=== PATIENT | female | born 1965 | race Two or more races ===

== ENCOUNTER → 2024-01-22 | Outpatient (CLI) | payer MEDICAID, SELFPAY ==
--- NOTE | 2024-01-22 | XR_ITS ---
Examination: Knee, right , 3 views Technique: Knee AP, lateral, oblique 3 views Date and time of exam: January 22, 2024 1249 hours INDICATIONS: Knee pain years FINDINGS: Total right knee arthroplasty. Satisfactory alignment. No fracture. No loosening of the prosthetic components IMPRESSION: Total right knee arthroplasty with satisfactory alignment
== END | disposition home or self-care (01) ==
LOC: CDIM 11:40
PROVIDERS: PCP Nurse Practitioner Family; Referring Provider Nurse Practitioner Family; Visit Provider Nurse Practitioner Family
DX: M25.561 Pain in right knee (principal); Z96.651 Presence of right artificial knee joint
CPT/HCPCS: 73562

== ENCOUNTER → 2024-01-22 | Outpatient (BNVA) | payer MEDICAID, SELFPAY | END | disposition home or self-care (01) | PROVIDERS: PCP Nurse Practitioner Family; Referring Provider Nurse Practitioner Family; Visit Provider Nurse Practitioner Family | DX: Z71.2 Person consulting for explanation of examination or test findings (principal); E78.5 Hyperlipidemia, unspecified; R73.03 Prediabetes; M25.561 Pain in right knee; M54.50 Low back pain, unspecified; M54.6 Pain in thoracic spine; G89.29 Other chronic pain; M25.511 Pain in right shoulder; M54.16 Radiculopathy, lumbar region; M19.072 Primary osteoarthritis, left ankle and foot; M41.86 Other forms of scoliosis, lumbar region | CPT/HCPCS: 99214 ==

== ENCOUNTER → 2024-01-29 | Outpatient (BNVA) | payer MEDICAID, SELFPAY | END | disposition home or self-care (01) | PROVIDERS: PCP Nurse Practitioner Primary Care; Referring Provider Nurse Practitioner Primary Care; Visit Provider Nurse Practitioner Primary Care | DX: M25.561 Pain in right knee (principal); Z96.651 Presence of right artificial knee joint; G89.29 Other chronic pain | CPT/HCPCS: 99212; G0463 ==

== ENCOUNTER 2024-03-05 08:20 | Day surgery (SDC) | payer MEDICAID, SELFPAY ==
--- NOTE | 2024-03-04 07:00 | EKG_ITS ---
[facility] Test Date: 2024-03-04 Pat Name: KASEY MILLAN Department: Room: - Gender: Female Nurse Leader: RT STUDENT : 1965 Requested By: Maximilian Hernandez Order Number: [id number] Reading MD: Maximilian Hernandez Measurements Intervals Lenora Rate: 59 P: 1 DE: 183 QRS: 26 QRSD: 78 T: 32 QT: 420 QTc: 418 Interpretive Statements SINUS BRADYCARDIA Compared to ECG 03/31/2021 06:15:18 Sinus rhythm no longer present /[id number]
[2024-03-04 09:07] VITALS: BMI 32.7
[2024-03-04 09:46] LABS: Basophils # (Auto) 0.1 Thou/mm3 (0.0-0.2); Basophils % (Auto) 1 % (0-2.5); Eosinophils # (Auto) 0.4 Thou/mm3 (0.0-0.5); Eosinophils % (Auto) 6 % (0-10); Hematocrit 42.8 % (36.0-46.0); Hemoglobin 14.3 g/dL (12.0-16.0); Immature Granulocytes % (Auto) 0 % (0-0); Immature Granulocytes Auto 0.03 Thou/mm3 (0.00-0.00); Lymphocytes # (Auto) 2.1 Thou/mm3 (1.0-4.8); Lymphocytes % (Auto) 31 % (10-50); Mean Corpuscular HGB Conc 33.4 g/dl (31.0-37.0); Mean Corpuscular Hemoglobin 28.7 pg (25.0-35.0); Mean Corpuscular Volume 86 fL (80-100); Monocytes # (Auto) 0.5 Thou/mm3 (0.0-0.8); Monocytes % (Auto) 7 % (0-12); Neutrophils # (Auto) 3.8 Thou/mm3 (1.8-7.7); Neutrophils % (Auto) 55 % (37-80); Nucleated Red Blood Cell % 0 /100 WBC (0); Platelet Count 246 Thou/mm3 (140-440); RDW Standard Deviation 39.9 fL (36.4-46.3); Red Blood Count 4.99 Miln/mm3 (4.00-5.20); White Blood Count 6.8 Thou/mm3 (3.6-11.0)
[2024-03-04 10:11] LABS: Anion Gap 8 (7-16); BUN/Creatinine Ratio 24 Ratio (12-20); Blood Urea Nitrogen 17 mg/dL (9-23); Calcium 9.8 mg/dL (8.3-10.6); Carbon Dioxide 26.8 mMol/L (20.0-31.0); Chloride 105 mMol/L (98-107); Creatinine (Component) 0.7 mg/dL (0.6-1.3); Estimated Creatinine Clearance 88.6 mL/min (>60); Glucose 91 mg/dL (74-106); Osmolality,Calculated 280 (275-295); Potassium 4.2 mMol/L (3.4-5.1); Sodium 140 mMol/L (136-145); eGFR > 60 See Note
[2024-03-04 10:13] LABS: Partial Thromboplastin Time 28.2 Seconds (22.0-36.0); Prothrombin Time 10.5 Seconds (9.0-12.2)
[2024-03-05] VITALS (9 sets, daily range): BP systolic 109–133; BP diastolic 55–73; PULSE 59–85; RESP 12–20; TEMP 36.1–36.3; O2SAT 96–100; BMI 32.8
[2024-03-05] MEDS: RINGERS LACTATED 1000 ML 1,000 ML 20 ML IV (09:08)
--- NOTE | 2024-03-05 11:55 | ESOP_ITS ---
Date of Procedure 03/05/24 Pre Op Diagnosis Symptomatic varicose veins in both lower extremities Post Op Diagnosis Same as preop diagnosis Procedure Radiofrequency endovenous ablation of both the right and left greater saphenous veins Varicose vein excisions right lower extremity through 26 separate incisions Findings Successful closure of the greater saphenous veins both lower extremities with no evidence of thrombus in the saphenofemoral junction or common femoral vein on either side All marked varicose veins in the right lower extremity were successfully removed or disrupted Procedure Description With the patient standing in the preop area the varicose veins in the right lower extremity be treated were carefully marked with a sharpie pen. The patient was then brought to the operating room and general anesthesia was induced. Both lower extremities were then sterilely prepped and draped. Timeout was performed. Vein ablation procedures were done first by using ultrasound to identify the greater saphenous vein and the medial thigh just above the knee which was then accessed with a 21-gauge mini stick needle followed by mini stick wire then a 7 [place] Island[place] sheath introducer was placed. This was done in both legs. The ablation catheter was then brought to the field prepped and placed into the left leg ensuring that the catheter tip was 3 to 5 cm distal to the saphenofemoral junction. Tumescent anesthesia was then instilled along the saphenous vein to be treated. Catheter tip was then again inspected to be 3 to 5 cm distal to the saphenofemoral junction and under direct ultrasound compression the catheter was activated with 2 cycles proximally and 3 additional cycles down the leg. The saphenofemoral junction was inspected and as was the common femoral vein and found to be compressible with good augmentation and flow and no evidence of thrombus in either lower extremity at the end of the procedure. The exact same procedure was performed in both legs. Attention was then turned to the marked varicose veins in the right leg which were removed or disrupted by using a #11 blade to make a small skin caprice then b luntly enlarging this incision with a mosquito clamp and sequentially excising the veins. After hemostasis was obtained the leg was cleaned and then Steri- Strips were used to reapproximate the incisions. Sterile dressing was then applied with gauze, Kerlix and an Aleksandar wrap. An Aleksandar wrap was also applied to the left lower extremity. The patient woke well from anesthesia and went to recovery in stable condition Anesthesia other (Laryngeal mask anesthesia) Pathology / specimen Other (Varicose veins of right leg) Estimated Blood Loss 100 Condition Stable Disposition PACU Surgeon Maximilian Nowak MD Surgical Staff Operation Date: 03/05/24 10:30 Case Staff Anesthesiologist: Rogelio Ramos RN First Assistant: Jessi Tinoco
--- NOTE | 2024-03-05 12:20 | SUR.PHASEI ---
1220 Patient arrived to recovery resting comfortably in [facility], sleeping and able to arouse with verbal prompting, then drifts back to sleep, breathing unlabored, vital signs stable, denies pain, dressing intact to bilateral lower extremities; left leg; abd, kerlix, geovanna wraps, right leg; steri-strips, abd, kerlix roll, geovanna wraps, no bleeding noted, lung sounds clear upon auscultation, bilateral dorsalis pedis pulses present when palpated, report received from Jake BARRERA and Dr. Ramos
--- NOTE | 2024-03-05 12:46 | SUR.PHASEI ---
patient sitting up eating ice chips tolerating well
--- NOTE | 2024-03-05 12:52 | SUR.PHASEII ---
1252 report given to Cheryl Silva
[2024-03-05] MEDS: fentaNYL CIT INJ 50 mCg/ML AMP 2ML 25 MCG IV (13:17)
--- NOTE | 2024-03-05 13:30 | SUR.PHASEII ---
Report to Cheryl Matute RN
--- NOTE | 2024-03-05 13:30 | SUR.PHASEII ---
[id number] report received from Cheryl Silva RN
--- NOTE | 2024-03-05 13:41 | SUR.PHASEII ---
1341 Patient meets discharge criteria from recovery, awake and alert, breathing unlabored, vital signs stable, denies pain, dressing intact; no bleeding noted, patient drinking water; denies nausea, patient assisted with dressing into her clothing by her daughter, discharge instructions given to patient and patients daughter with the assistance of the telephone veterinary attendant Daniela ID#[id number], daughter signed discharge instructions. Patient given all her belongings prior to discharge, transported via wheelchair and left in a private vehicle.
== END 2024-03-05 13:41 | disposition home or self-care (01) ==
PROVIDERS: PCP Nurse Practitioner Family; Referring Provider Surgery Vascular Surgery; Visit Provider Surgery Vascular Surgery
PROC: (CPT 36475; principal; 2024-03-05 10:15)
DX: I83.813 Varicose veins of bilateral lower extremities with pain (principal); Z01.810 Encounter for preprocedural cardiovascular examination
CPT/HCPCS: 36475; 37766; 36415; 80048; 85025; 85610; 85730; 93005; A4217; A4649; C1888; C1894; J0690; J2250; J2371; J2405; J2704; J2765; J3010; J7050; J7120

== ENCOUNTER → 2024-04-23 | Outpatient (CLI) | payer MEDICAID, SELFPAY ==
--- NOTE | 2024-04-23 10:33 | XR_ITS ---
Exam: elbow bilateral, 6 views Technique: Elbow AP, oblique each elbow total 6 views Exam date and time: April 23, 2024 1040 hrs. Indications: Bilateral elbow pain beginning one year ago Findings: Mild bilateral elbow osteoarthritis including spurring of the coronoid process of the ulna bilaterally Minute posterior bony olecranon spurs No elbow effusions No fracture or dislocation Impression: Mild bilateral elbow osteoarthritis.
== END | disposition home or self-care (01) ==
PROVIDERS: PCP Nurse Practitioner Gerontology; Referring Provider Nurse Practitioner Gerontology; Visit Provider Nurse Practitioner Gerontology
DX: M19.022 Primary osteoarthritis, left elbow (principal); M19.021 Primary osteoarthritis, right elbow
CPT/HCPCS: 73080

== ENCOUNTER → 2024-05-05 | Outpatient (BNVA) | payer MEDICAID, SELFPAY | END | disposition home or self-care (01) | PROVIDERS: PCP Nurse Practitioner Family; Referring Provider Nurse Practitioner Family; Visit Provider Nurse Practitioner Family | DX: Z71.2 Person consulting for explanation of examination or test findings (principal); M53.3 Sacrococcygeal disorders, not elsewhere classified; Z96.651 Presence of right artificial knee joint; M25.561 Pain in right knee; G89.29 Other chronic pain; R52 Pain, unspecified; R73.03 Prediabetes; E78.5 Hyperlipidemia, unspecified | CPT/HCPCS: 99215 ==

== ENCOUNTER → 2024-05-06 | Outpatient (CLI) | payer MEDICAID, SELFPAY ==
--- NOTE | 2024-05-06 13:59 | XR_ITS ---
Examination: Sacrum and coccyx 3 views Technique: AP inclined AP lateral sacrum and coccyx 3 views Exam date and time: May 06, 2024 1433 hrs. Indications: Sacral pain beginning one week ago. Findings: Mild bilateral sacroiliitis Adequate alignment sacrococcygeal segments, no fracture Moderate degenerative disc disease L5-S1 Impression: Mild bilateral sacroiliitis
== END | disposition home or self-care (01) ==
LOC: CDIM 13:47
PROVIDERS: PCP Nurse Practitioner Family; Referring Provider Nurse Practitioner Family; Visit Provider Nurse Practitioner Family
DX: M46.1 Sacroiliitis, not elsewhere classified (principal)
CPT/HCPCS: 72220

== ENCOUNTER → 2024-05-15 | Outpatient (BNVA) | payer MEDICAID, SELFPAY | END | disposition home or self-care (01) | PROVIDERS: PCP Nurse Practitioner Family; Referring Provider Nurse Practitioner Family; Visit Provider Nurse Practitioner Family | DX: Z71.2 Person consulting for explanation of examination or test findings (principal); R52 Pain, unspecified; G89.29 Other chronic pain; M53.3 Sacrococcygeal disorders, not elsewhere classified; M25.561 Pain in right knee; R73.03 Prediabetes; E78.5 Hyperlipidemia, unspecified; M77.9 Enthesopathy, unspecified; M54.6 Pain in thoracic spine; M41.86 Other forms of scoliosis, lumbar region; M54.16 Radiculopathy, lumbar region; M48.00 Spinal stenosis, site unspecified; M85.872 Other specified disorders of bone density and structure, left ankle and foot; M85.871 Other specified disorders of bone density and structure, right ankle and foot | CPT/HCPCS: 99212; G0463 ==

== ENCOUNTER → 2024-05-27 | Outpatient (BNVA) | payer MEDICAID, SELFPAY | END | disposition home or self-care (01) | PROVIDERS: PCP Nurse Practitioner Family; Referring Provider Nurse Practitioner Family; Visit Provider Nurse Practitioner Family | DX: N76.0 Acute vaginitis (principal); Z12.4 Encounter for screening for malignant neoplasm of cervix | CPT/HCPCS: 81001; 99215; Q0091 ==

== ENCOUNTER → 2024-06-05 | Outpatient (BNVA) | payer MEDICAID, SELFPAY | END | disposition home or self-care (01) | PROVIDERS: PCP Nurse Practitioner Family; Referring Provider Nurse Practitioner Family; Visit Provider Nurse Practitioner Family | DX: Z71.2 Person consulting for explanation of examination or test findings (principal); Z12.11 Encounter for screening for malignant neoplasm of colon | CPT/HCPCS: 99212; G0463 ==

== ENCOUNTER → 2024-06-10 | Outpatient (BNVA) | payer MEDICAID, SELFPAY | END | disposition home or self-care (01) | PROVIDERS: PCP Nurse Practitioner Family; Referring Provider Nurse Practitioner Family; Visit Provider Nurse Practitioner Family | DX: Z71.2 Person consulting for explanation of examination or test findings (principal) | CPT/HCPCS: 99212; G0463 ==

== ENCOUNTER → 2024-07-07 | Outpatient (BNVA) | payer MEDICAID, SELFPAY | END | disposition home or self-care (01) | PROVIDERS: PCP Nurse Practitioner Family; Referring Provider Nurse Practitioner Family; Visit Provider Nurse Practitioner Family | DX: E78.5 Hyperlipidemia, unspecified (principal); M54.18 Radiculopathy, sacral and sacrococcygeal region; Z96.651 Presence of right artificial knee joint; M25.561 Pain in right knee; G89.29 Other chronic pain; R73.03 Prediabetes; Z23 Encounter for immunization | CPT/HCPCS: 90471; 90677; 96372; 99213; J1885; J90677 ==

== ENCOUNTER → 2024-07-30 | Outpatient (BNVA) | payer MEDICAID, SELFPAY | END | disposition home or self-care (01) | PROVIDERS: PCP Nurse Practitioner Family; Referring Provider Nurse Practitioner Family; Visit Provider Nurse Practitioner Family | DX: Z00.01 Encounter for general adult medical examination with abnormal findings (principal); R73.03 Prediabetes; E78.5 Hyperlipidemia, unspecified; Z96.651 Presence of right artificial knee joint; M25.561 Pain in right knee; I83.813 Varicose veins of bilateral lower extremities with pain; G89.29 Other chronic pain; F32.1 Major depressive disorder, single episode, moderate; M25.572 Pain in left ankle and joints of left foot; M25.571 Pain in right ankle and joints of right foot; M85.872 Other specified disorders of bone density and structure, left ankle and foot; M85.871 Other specified disorders of bone density and structure, right ankle and foot; M19.072 Primary osteoarthritis, left ankle and foot; M19.071 Primary osteoarthritis, right ankle and foot; M48.00 Spinal stenosis, site unspecified; E55.9 Vitamin D deficiency, unspecified; M54.50 Low back pain, unspecified; M25.50 Pain in unspecified joint; M25.511 Pain in right shoulder; M41.86 Other forms of scoliosis, lumbar region; K02.9 Dental caries, unspecified; E66.811 Obesity, class 1; Z68.32 Body mass index [BMI] 32.0-32.9, adult; Z71.85 Encounter for immunization safety counseling | CPT/HCPCS: 93005; 99173; 99215 ==

== ENCOUNTER → 2024-08-12 | Outpatient (BNVA) | payer MEDICAID, SELFPAY | END | disposition home or self-care (01) | PROVIDERS: PCP Nurse Practitioner Family; Referring Provider Nurse Practitioner Family; Visit Provider Nurse Practitioner Family | DX: Z71.2 Person consulting for explanation of examination or test findings (principal); Z12.39 Encounter for other screening for malignant neoplasm of breast; E78.5 Hyperlipidemia, unspecified; R73.03 Prediabetes; E55.9 Vitamin D deficiency, unspecified; E03.8 Other specified hypothyroidism | CPT/HCPCS: 99214 ==

== ENCOUNTER → 2024-09-14 | Outpatient (CLI) | payer MEDICAID, SELFPAY ==
--- NOTE | 2024-09-14 13:30 | XR_ITS ---
Examination: Screening digital mammography, bilateral Computer aided detection 3-D breast Tomosynthesis, bilateral Date and time of exam: September 14, 2024 1322 hours Compared to mammograms dating to August 30, 2015 Indication: Screening Technique: Nonmagnified MLO, CC views of the breasts to been obtained, reconstructed from 3-D Tomosynthesis images. R2 computer aided detection program utilized for evaluation of suspicious masses and/or abnormal calcifications. 3-D Tomosynthesis images obtained. Findings: The breasts are heterogeneously dense, which may obscure small masses 8 mm focal asymmetry 3:00 position left breast Impression: BI-RADS Category 0: Incomplete: Need additional imaging evaluation Recommend follow-up spot tomographic views of 8 mm focal asymmetry 3:00 position left breast as well as left breast sonography to complete the workup
== END | disposition home or self-care (01) ==
LOC: CDIM 13:04
PROVIDERS: Referring Provider Nurse Practitioner Family; Visit Provider Nurse Practitioner Family
DX: Z12.31 Encounter for screening mammogram for malignant neoplasm of breast (principal); N64.89 Other specified disorders of breast
CPT/HCPCS: 77063; 77067

== ENCOUNTER → 2024-09-17 | Outpatient (BNVA) | payer MEDICAID, SELFPAY | END | disposition home or self-care (01) | PROVIDERS: PCP Nurse Practitioner Family; Referring Provider Nurse Practitioner Family; Visit Provider Nurse Practitioner Family | DX: M53.3 Sacrococcygeal disorders, not elsewhere classified (principal); Z96.651 Presence of right artificial knee joint; M25.561 Pain in right knee; G89.29 Other chronic pain; M41.86 Other forms of scoliosis, lumbar region; M75.111 Incomplete rotator cuff tear or rupture of right shoulder, not specified as traumatic; M46.1 Sacroiliitis, not elsewhere classified; M54.9 Dorsalgia, unspecified | CPT/HCPCS: 96372; 99214; J1885 ==

== ENCOUNTER → 2024-11-20 | Outpatient (CLI) | payer MEDICAID, SELFPAY ==
--- NOTE | 2024-11-20 15:00 | XR_ITS ---
Examination: Breast ultrasound, unilateral, left Date and time of exam: November 20, 2024, 1450 hours INDICATIONS: Mammogram September 14, 2024 8mm focally symmetry 3:00 position left breast Technique: Real-time russell scale ultrasonographic imaging performed left breast including all 4 quadrants as well as nipple retroareolar and axillary region. Findings: No cystic or solid mass IMPRESSION: BI-RADS Category 1: Negative study
--- NOTE | 2024-11-20 15:30 | XR_ITS ---
Examination: Diagnostic digital mammography, unilateral, LEFT Computer aided detection 3-D breast Tomosynthesis, unilateral Date and time of exam: November 20, 2024, 1500 hours INDICATIONS: Mammogram September 14, 2024 8mm focal asymmetry 3:00 position left breast Technique: Nonmagnified MLO, CC views of the left breast have been obtained, reconstructed from 3-D Tomosynthesis images. R2 computer aided detection program utilized for evaluation of suspicious masses and/or abnormal calcifications. 3-D Tomosynthesis images obtained. Findings: The breast is heterogeneously dense, which may obscure small masses No suspicious masses confirmed on the spot compression views Impression: BI-RADS category 2: Benign findings Return to yearly follow-up mammography
== END | disposition home or self-care (01) ==
PROVIDERS: PCP Nurse Practitioner Family; Referring Provider Nurse Practitioner Family; Visit Provider Nurse Practitioner Family
DX: R92.322 Mammographic fibroglandular density, left breast (principal)
CPT/HCPCS: 76641; 77061; 77065; G0279

== ENCOUNTER → 2024-11-26 | Outpatient (BNVA) | payer MEDICAID, SELFPAY | END | disposition home or self-care (01) | PROVIDERS: PCP Nurse Practitioner Family; Referring Provider Nurse Practitioner Family; Visit Provider Nurse Practitioner Family | DX: Z71.2 Person consulting for explanation of examination or test findings (principal); R92.8 Other abnormal and inconclusive findings on diagnostic imaging of breast; Z23 Encounter for immunization | CPT/HCPCS: 90471; 90686; 99214 ==